=== PATIENT | male | born 1975 | race Caucasian/White ===

== ENCOUNTER 2018-07-06 12:50 | Emergency (ER) | payer SELFPAY ==
[2018-07-06 12:57] VITALS: BP 148/99; PULSE 111; RESP 20; TEMP 36.9; O2SAT 98; BMI 32.5
== END 2018-07-06 15:03 | disposition left against medical advice (07) ==
LOC: ED 12:55
DX: R10.9 Unspecified abdominal pain (principal)
CPT/HCPCS: 99281; 99282